=== PATIENT | female | born 1955 | race Caucasian/White ===

== ENCOUNTER 2016-05-06 18:02 | Emergency (ER) | payer OTHER ==
[2016-05-06] MEDS ORDERED: LORazepam 1 MG TABLET ONE (18:41)
[2016-05-06] MEDS ORDERED: ONDANSETRON ODT 4 MG TAB.RAPDIS ONE (18:41)
[2016-05-06] MEDS ORDERED: HYDROmorphone HCL 1 MG/ML SYR ONE (18:42)
[2016-05-06] MEDS ORDERED: FENTANYL 250 MCG/5 ML VIAL ONE (23:53)
--- NOTE | 2016-05-07 02:39 | ER PHYSICIAN DOCUMENTATION ---
Physician Documentation [facility] Name:Maureen Nj Age:61 yrs Sex:Female :1955 Arrival Date:05/06/2016 Time:18:01 BedD-1 Private MD: Ras Gomes Disposition: 05/07 21:27 Chart complete. tl1 Disposition: 05/06/16 20:[address] [facility]. Diagnosis is Cervical Spine Compression Fracture. - Reason for transfer: Higher level of care. - Accepting physician is Musa Wick. - Condition is Fair. - Problem is new. - Symptoms are unchanged. COBRA Form completed? Transfer - Mode of Transportation Ambulance HPI: 05/06 18:15 This 61 yrs old Female presents to ER via Private Vehicle with complaints of tl1 Neck and Upper Back Pain. 18:15 The patient or guardian complains of pain, that is acute. tl1 18:39 Onset: The symptom(s)/episode began/occurred suddenly, yesterday. Context: The problem tl1 was sustained at home. She stumbled yesterday at home and fell forward, striking her forehead on the arm of the couch. She had minimal if any pain initially but over the last 24 hrs, she has had progressive pain, now severe when she moves her head in any direction. No LOC. No h/a, n/v. No n/w/t. She denies any other pain or symptoms, other than her frequent anxiety.. Historical: - Allergies: PENICILLINS; Positive latex allergy; - Home Meds: 1. Coumadin Oral for Pulmonary Thromboembolism Prevention 2. Prozac Oral 3. Neurontin Oral - PMHx: CAD; DEPRESSION; ANXIETY; BIPOLAR DISORDER; gastric ulcer ; Anxiety Reaction (April 10, 2016); - PSHx: MITRAL VALVE REPLACEMENT; HYSTERECTOMY; CHOLECYSECTOMY; gastric bypass surgery ; - Tetanus: unknown. - Ebola Screening: : Patient negative for fever greater than or equal to 101.5 degrees Fahrenheit, and additional compatible Ebola Virus Disease symptoms. Patient denies exposure to infectious person. Patient denies travel to an Ebola-affected area in the 21 days before illness onset. No symptoms or risks identified at this time. . - Immunization history: Flu Vaccine unknown. - Social history: Smoking status: unknown if patient ever smoked tobacco. ROS: 18:44 Neck: Positive for injury or acute deformity, pain with movement, pain at rest, tl1 stiffness. 18:44 All other systems are negative. Exam: 18:44 Constitutional: The patient appears alert, awake, well developed, well hydrated, well tl1 groomed, well nourished, anxious, in obvious distress, in obvious pain, uncomfortable. 18:44 Head/face: Exam is negative for acute changes. 18:44 Eyes: Pupils: equal, round, and reactive to light and accomodation, Extraocular movements: intact throughout. 18:44 ENT: Exam is negative for acute changes, TM's: not examined, Nose: is normal. 18:44 Neck: External neck: is normal, C-spine: Nexus Criteria: the patient is not clinically intoxicated, the patient displays normal alertness, no focal neurologic deficit is appreciated, no distracting injury is present, tenderness to the posterior midline, vertebral tenderness, that is moderate, appreciated at C2, C3, C4, C5 and C6, ROM/movement: limited range of motion, that is severe, in any direction. 18:44 Cardiovascular: Rate: normal, Rhythm: regular, Heart sounds: normal. 18:44 Skin: Exam negative for acute changes. 18:44 Neuro: Orientation: is normal, Mentation: is normal, Memory: is normal, Cranial nerves: grossly normal, Motor: strength is 5/5 in the right hand, left hand, right arm and left arm, Sensation: light touch sense is normal, Gait: not tested. Deep tendon reflexes are 3+ (brisk) in the right tricep, right brachioradialis, left tricep and left brachioradialis. 18:44 Neuro: Babinski testing is not performed. 18:44 Psych: Behavior/mood is anxious, depressed, Affect is flat, Judgement / Insight is normal. Memory is normal. Vital Signs: 18:11 BP 141 / 77; Pulse 83; Resp 18; Temp 98(O); Pulse Ox 98% on R/A; Weight 90.72 kg (R); tg Height 5 ft. 6 in. (167.64 cm); Pain 10/10; 18:54 Pulse 81; Resp 16; Pulse Ox 96% ; Pain 7/10; tg 19:34 BP 117 / 80; Pulse 80; Pulse Ox 96% on NC; ma 20:08 BP 102 / 88; Pulse 77; Pulse Ox 94% ; ma 18:11 Body Mass Index 32.28 (90.72 kg, 167.64 cm) tg Sho Coma Score: 18:44 Eye Response: spontaneous(4). Verbal Response: oriented(5). Motor Response: obeys tl1 commands(6). Total: 15. MDM: 18:21 Patient medically screened. tl1 18:50 Differential diagnosis: C-Spine Fracture Cervical Discogenic Pain Cervical Facet tl1 Syndrome Cervical Raiculopathy Cervical Spondylosis cervical strain. Data reviewed: vital signs, nurses notes, radiologic studies, CT scan, and as a result, I will discharge patient. 05/07 19:00 ED course: Collar placed on return from CT.. tl1 Dispensed Medications: 05/06 18:38 Drug: Dilaudid 1 mg; Route: IM; Site: right deltoid; tg 18:54 Follow up: Response: Pain is decreased tg 18:38 Drug: Zofran 4 mg; Route: PO; tg 18:53 Follow up: Response: No adverse reaction tg 18:38 Drug: Ativan 1 mg; Route: PO; tg 18:53 Follow up: Response: Anxiety decreased tg Signatures: Denzel Blanco RN RN tg Maria Antonia Hernandez4 Ras Rondon MD MD tl1
--- NOTE | 2016-05-07 02:39 | ER NURSING DOCUMENTATION ---
Nurse's Notes [facility] Name:Maureen Nj Age:61 yrs Sex:Female :1955 Arrival Date:05/06/2016 Time:18:01 BedD-1 Private MD: Diagnosis:Cervical Spine Compression Fracture Presentation: 05/06 18:09 Presenting complaint: Patient states: Pt reports tripping on the way to the bathroom tg yesterday, hit her head on the couch. Pain in neck with movement today, generalized on the posterior aspect. Denies numbness or tingling in extremeties. Transition of care: patient was not received from another setting of care. Notified ED Physician of patient's arrival and CC Dr. Rondon notified. 18:09 Acuity: JENNY 4 tg 18:09 Method Of Arrival: Private Vehicle tg 18:38 Acuity: JENNY 3 tg 19:35 Acute neurological deficit: none identified. ma Triage Assessment: 18:12 General: Appears uncomfortable, Behavior is anxious, flat. Pain: Complains of pain in tg back of neck Quality of pain is described as sharp, Aggravated by increased activity, repositioning. Neuro: Level of Consciousness is awake, alert. Cardiovascular: Capillary refill < 3 seconds. Respiratory: Respiratory effort is even, unlabored. Derm: Skin is pink, warm & dry. Derm: Bruising that is dark purple, on left bicep, left antecubital area and dorsal aspect of left forearm Pt does not know where bruising is from. Denies other recent falls. . Historical: - Allergies: PENICILLINS; Positive latex allergy; - Home Meds: 1. Coumadin Oral for Pulmonary Thromboembolism Prevention 2. Prozac Oral 3. Neurontin Oral - PMHx: CAD; DEPRESSION; ANXIETY; BIPOLAR DISORDER; gastric ulcer ; Anxiety Reaction (April 10, 2016); - PSHx: MITRAL VALVE REPLACEMENT; HYSTERECTOMY; CHOLECYSECTOMY; gastric bypass surgery ; - Tetanus: unknown. - Ebola Screening: : Patient negative for fever greater than or equal to 101.5 degrees Fahrenheit, and additional compatible Ebola Virus Disease symptoms. Patient denies exposure to infectious person. Patient denies travel to an Ebola-affected area in the 21 days before illness onset. No symptoms or risks identified at this time. . - Immunization history: Flu Vaccine unknown. - Social history: Smoking status: unknown if patient ever smoked tobacco. Screenin:14 Infectious Disease Risk Unable to Obtain. Abuse screen: Denies threats or abuse. Denies tg injuries from another. Nutritional screening: No deficits noted. Assessment: 19:41 Reassessment: Airway patent Able to moveextremities Able to move extremities gently. ma Neuro: No deficits noted. Vital Signs: 18:11 BP 141 / 77; Pulse 83; Resp 18; Temp 98(O); Pulse Ox 98% on R/A; Weight 90.72 kg (R); tg Height 5 ft. 6 in. (167.64 cm); Pain 10/10; 18:54 Pulse 81; Resp 16; Pulse Ox 96% ; Pain 7/10; tg 19:34 BP 117 / 80; Pulse 80; Pulse Ox 96% on NC; ma 20:08 BP 102 / 88; Pulse 77; Pulse Ox 94% ; ma 18:11 Body Mass Index 32.28 (90.72 kg, 167.64 cm) tg Sho Coma Score: 18:44 Eye Response: spontaneous(4). Verbal Response: oriented(5). Motor Response: obeys tl1 commands(6). Total: 15. ED Course: 18:01 Patient arrived in ED. em3 18:09 Denzel Blanco RN is Primary Nurse. tg 18:10 Triage completed. tg 18:14 Gowned. Family accompanied patient. tg 18:14 Valuables Remains with patient. tg 18:21 Ras Rondon MD is Attending Physician. tl1 18:[address] hz 18:52 Patient moved back from [address]. hz 18:54 Report given to VICKY Hernandez. tg 19:35 C-collar applied. ma Administered Medications: 18:38 Drug: Dilaudid 1 mg; Route: IM; Site: right deltoid; tg 18:54 Follow up: Response: Pain is decreased tg 18:38 Drug: Zofran 4 mg; Route: PO; tg 18:53 Follow up: Response: No adverse reaction tg 18:38 Drug: Ativan 1 mg; Route: PO; tg 18:53 Follow up: Response: Anxiety decreased tg Outcome: 19:51 [facility] Time: May 06, 2016 at 19:42 Patient's face sheet was faxed to accepting facility. Face Sheet included patient's name, address, age, gender, contact information and insurance information. Patient will be transported by: [facility] ground. Nurse and Physician Charting and Notes were sent to Accepting Facility. All tests and/or procedures with results, if applicable, were sent to accepting facility. 19:56 Condition: stable az 19:56 Report given to Nohemi [facility] ED 19:56 Instructed on need for transfer 20:07 Transferred: Report called to: Nohemi PERRY ma 20:47 ER care complete, transfer ordered by . tl1 05/07 02:38 Patient left the ED. mk4 Signatures: Denzel Blanco RN RN Marisel Florence RN VICKY Vazquez, Maria Antonia Cates mk4 Ras Rondon MD MD tl1 Rere Boyce
--- NOTE | 2016-05-07 10:13 | CT REPORT ---
EXAM:CAT SCAN; CERVICAL [id number] INDICATION: Trauma, with pain. COMPARISON:04/26/2009. TECHNIQUE:Axial images were obtained through the cervical spine and reconstructed to 2 mm. Multiplana r reformations were created. Radiation dose reduction technique was utilized. FINDINGS: An acute fracture extends from the inner aspect of the left superior facet of C2 in oblique manner across the C2 vertebral body, to the right C2 pedicle. The fracture is nondisplaced. Facet kiran ints are normally aligned. There is unchanged bony fusion of the C2 and C3 vertebral bodies. The frac ture does not extend to C3. Craniocervical alignment is normal. Posterior elements are otherwise inta ct. Remaining bones are intact. Prevertebral soft tissues are normal. Degenerative disc disease remains moderate at C4-5, C5-6, and T1-2 and mild at C6-7 and C7-T1. Multilevel facet degenerative arthropath y is present. IMPRESSION: 1. Acute nondisplaced fracture which is obliquely runs through the C2 level, from the left superior f acet to the right pedicle. Normal alignment. 2. Unchanged chronic bony fusion of the C2 and C3 vertebrae. 3. Unchanged multilevel degenerative disc disease and facet arthropathy as described. Critical results of cervical spine fracture were personally communicated to Dr. Rondon on 05/06/2016 at 6:55 PM. Final Electronic Signature: This report was electronically signed by Jaspal Graham MD on 05/07/2016 10:11 AM. [email or web address] /
== END 2016-05-07 02:39 | disposition short-term general hospital (02) ==
LOC: ER 18:02
DX: S12.101A Unspecified nondisplaced fracture of second cervical vertebra, initial encounter for closed fracture (principal); W01.190A Fall on same level from slipping, tripping and stumbling with subsequent striking against furniture, initial encounter; Y92.018 Other place in single-family (private) house as the place of occurrence of the external cause; Y93.01 Activity, walking, marching and hiking; Z74.3 Need for continuous supervision; I25.10 Atherosclerotic heart disease of native coronary artery without angina pectoris; Z95.2 Presence of prosthetic heart valve; Z79.899 Other long term (current) drug therapy; Z79.01 Long term (current) use of anticoagulants; Z79.82 Long term (current) use of aspirin
CPT/HCPCS: 72125; 96372; 99285; A0425; A0427; J1170